=== PATIENT | male | born 2000 | race Caucasian/White ===

== ENCOUNTER 2020-05-22 17:12 | Emergency (ER) | payer BC, OTHER ==
--- NOTE | 2020-05-22 17:23 | PDOC ---
Rapid Medical Evaluation Time Seen by Provider: 05/22/20 17:17 Medical Evaluation: Allergies Allergy/AdvReac Type Severity Reaction Status Date / Time No Known Allergies Allergy Verified 05/22/20 17:16 05/22/20 17:18 I performed a brief in-person evaluation of this patient. Pt is a 20 y/o male who presents to the ED with complaint of left hand tingling for the last 3 days after falling asleep on his hand. He denies any known injury. He denies any past medical history of allergies to medications. The p atient took ibuprofen and states it helped his symptoms. Pertinent physical exam findings: left wrist + tinel's sign, tingling reproduced with compression over the ulnar nerve as well, FROM all fingers I have ordered the following: none Patient to proceed to ED for further evaluation. Discharge Disposition - Diagnosis Numbness and tingling in left hand - Referrals - Patient Instructions - Post Discharge Activity
[2020-05-22 17:31] VITALS: BP 145/92; PULSE 64; TEMP 98.1; BMI 25.8
[2020-05-22] MEDS ORDERED: KETOROLAC TROMETHAMINE 30 MG/1 ML VIAL IM ONE (18:18)
--- NOTE | 2020-05-22 18:24 | PDOC ---
History of Present Illness - General Chief Complaint: Pain Stated Complaint: LEFT ARM/HAND/SIDE/NUMBNESS Time Seen by Provider: 05/22/20 17:17 History Source: Patient Exam Limitations: No Limitations - History of Present Illness Initial Comments: 05/22/20 18:19 20-year-old male denies past medical history [id number] complains of left wrist pain, numbness and tingling to all fingers x 72 hours. Patient states pain started after he woke up from a 4-hour nap in which he slept on his wrist. Denies weakness, fever, chills, back pain, difficulty walking, neck pain or any other complaints. Patient took 1 dose of ibuprofen yesterday which helped his symptoms. ROS: as above PE: GENERAL: well-appearing, NAD HEAD: NCAT EYES: Pupils equal, round and reactive to light, sclera anicteric, conjunctiva clear ENT: pharynx: no erythema, no exudate, uvula midline NECK: supple CHEST: nontender RESP: clear, no w/r/r CARDIO: rrr, no m/g/r ABD: +BS, soft, nontender, non distended BACK: no midline spinal ttp, no CVAT EXTREMITIES: Normal range of motion, no edema NEUROLOGICAL: + tinel's, Normal speech, normal gait, 5/5 strength and sensation SKIN: Warm, Dry Is this a multiple visit Asthma Patient?: No Past History - Medical History Allergies/Adverse Reactions: Allergies Allergy/AdvReac Type Severity Reaction Status Date / Time No Known Allergies Allergy Verified 05/22/20 17:16 - Psycho-Social/Smoking History Smoking History: Never smoked - Substance Abuse Hx (Audit-C & DAST Scrn) How often the patient has a drink containing alcohol: Never Score: In Men: 4 or > Positive; In Women: 3 or > Positive: 0 Screen Result (Pos requires Nsg. Audit-10AR): Negative In the last yr the pt used illegal drug/Rx for NonMed reason: No Score: Yes response is considered Positive: 0 Screen Result (Positive result requires Nsg. DAST-10): Negative *Physical Exam - Vital Signs Last Vital Signs Temp Pulse Resp BP Pulse Ox 98.1 F 64 18 145/92 100 05/22/20 17:18 05/22/20 17:18 05/22/20 17:18 05/22/20 17:18 05/22/20 17:18 Medical Decision Making - Medical Decision Making 05/22/20 18:21 20-year-old male denies past medical history [id number] complains of left wrist pain, numbness and tingling to all fingers x 72 hours. Patient states pain started after he woke up from a 4-hour nap in which he slept on his wrist. Denies weakness, fever, chills, back pain, difficulty walking, neck pain or any other complaints. Patient took 1 dose of ibuprofen yesterday which helped his symptoms. Toradol 30 mg IM x1 dose Wrist splint applied Advised patient to schedule an appointment with PMD for next week return precautions discussed 05/22/20 18:26 Discharge - Discharge Information Problems reviewed: Yes Clinical Impression/Diagnosis: Numbness and tingling in left hand Condition: Stable Disposition: HOME - Admission No - Follow up/Referral Referrals: [facility] [place] [Provider Group] - Patient Discharge Instructions Additional Instructions: Wear wrist splint for comfort Alternate between acetaminophen 975 mg and ibuprofen 600 every 6 hours as needed for pain Follow-up with primary care physician next week - Post Discharge Activity
[2020-05-22] MEDS ORDERED: KETOROLAC TROMETHAMINE 30 MG/1 ML VIAL ONE (18:27)
== END 2020-05-22 18:36 | disposition home or self-care (01) ==
LOC: JERFT 17:12
PROC: 3E0233Z Introduction of Anti-inflammatory into Muscle, Percutaneous Approach (ICD-10-PCS; principal; 2020-05-22)
DX: R20.2 Paresthesia of skin (principal)
CPT/HCPCS: 99284-25